=== PATIENT | female | born 1955 | race Caucasian/White ===

== ENCOUNTER 2017-07-27 23:05 | Emergency (ER) | payer OTHER ==
[~2017-07-27] VITALS: Ht 154.9 cm; Wt 54.1 kg
[2017-07-27 23:42] VITALS: Ht 154.9 cm; Wt 54.1 kg
[2017-07-28 06:55] LABS: CALCIUM 8.8 mg/dL (8.5-10.1); CARBON DIOXIDE 28.6 mmol/L (21-32); CHLORIDE SERUM 104 mmol/L (98-107); CREATININE SERUM 0.7 mg/dL (0.6-1.0); GFR1 > 60 mL/min; GLUCOSE SERUM 116 mg/dL (74-106); POTASSIUM SERUM 3.9 mmol/L (3.5-5.1); SODIUM SERUM 141 mmol/L (136-145)
[2017-07-28 07:01] LABS: BASOPHIL % 0.3 % (0-2); PLATELET COUNT 354 x10^3mcL (130-400); RED CELL DISTRIBUTION WIDTH 13.6 % (11.5-14.5)
[2017-07-28 11:04] LABS: ERYTHROCYTE SED RATE 58 mm/hr (0-30)
[2017-07-28 11:28] VITALS: BP 149/75
== END 2017-07-28 11:28 | disposition home or self-care (01) ==
LOC: ED 23:05
PROVIDERS: Emergency Medicine
DX: L03.116 Cellulitis of left lower limb (principal); S80.812A Abrasion, left lower leg, initial encounter; X58.XXXA Exposure to other specified factors, initial encounter; I10 Essential (primary) hypertension; E11.9 Type 2 diabetes mellitus without complications; Y93.9 Activity, unspecified; Y92.89 Other specified places as the place of occurrence of the external cause; Y99.8 Other external cause status
CPT/HCPCS: 36415; Q0092

== ENCOUNTER 2018-11-29 20:52 | Emergency (ER) | payer SELFPAY ==
[~2018-11-29] VITALS: Ht 149.9 cm; Wt 54.4 kg
[2018-11-29 21:21] VITALS: Ht 149.9 cm; Wt 54.4 kg
[2018-11-29 23:04] VITALS: BP 146/73
== END 2018-11-29 23:04 | disposition home or self-care (01) ==
LOC: ED 20:52
DX: L03.116 Cellulitis of left lower limb (principal); I10 Essential (primary) hypertension; E11.9 Type 2 diabetes mellitus without complications; W22.03XA Walked into furniture, initial encounter; Y93.89 Activity, other specified; Y92.89 Other specified places as the place of occurrence of the external cause; Y99.8 Other external cause status
CPT/HCPCS: 82962